=== PATIENT | female | born 1980 | race American Indian/Alaskan Native ===

== ENCOUNTER 2017-02-20 16:04 | Inpatient (IN) | payer OTHER ==
[2017-02-20] MEDS ORDERED: Sodium Chloride 0.9% 1,000 ML ONE (16:38)
[2017-02-20 16:51] LABS: RBC URINE 6 /hpf (0-3); URINE BACTERIA RARE (<OCC); URINE BILIRUBIN NEGATIVE (NEGATIVE); URINE BLOOD 1+ (NEGATIVE); URINE COLOR Yellow (YELLOW); URINE GLUCOSE (UA) NORMAL (Normal); URINE KETONE NEGATIVE (NEGATIVE); URINE LEUKOCYTE ESTERASE NEG Leu/uL (Negative); URINE PROTEIN NEGATIVE (NEGATIVE); URINE UROBILINOGEN NORMAL mg/dL (0.2-1.0); WBC URINE 1 /hpf (0-5)
[2017-02-20] MEDS: Sodium Chloride 0.9% 1,000 ML IV SCH (16:52)
--- NOTE | 2017-02-20 17:06 | C.PDOC ---
History Of Present Illness 36 year old female was referred to the ED by Dr. Martines to be admitted for cellulitis and abscess to left thigh for almost one month. Patient states abscess was draining a few days ago but is no longer draining. She is scheduled for the OR tomorrow and denies fever or any new physical complaints. Time Seen by Provider: 02/20/17 16:16 Chief Complaint (Nursing): Abnormal Skin Integrity History Per: Patient History/Exam Limitations: no limitations Onset/Duration Of Symptoms: Persistent (1 month ) Current Symptoms Are (Timing): Still Present Location Of Injury: Left: Thigh Quality Of Symptoms: Draining (stopped draining a few days ago as per patient ) Recent travel outside of the [place]: No Additional History Per: Prior Records (Dr. Martines ) Past Medical History Reviewed: Historical Data, Nursing Documentation, Vital Signs Vital Signs: Last Vital Signs Temp 98.5 F 02/20/17 16:11 Pulse 69 02/20/17 17:59 Resp 18 02/20/17 17:59 BP 112/62 02/20/17 17:59 Pulse Ox 100 02/20/17 18:18 Family History: States: Unknown Family Hx - Social History Hx Alcohol Use: No Hx Substance Use: No Review Of Systems Constitutional: Negative for: Fever, Chills Cardiovascular: Negative for: Chest Pain, Palpitations Gastrointestinal: Negative for: Nausea, Vomiting, Abdominal Pain, Diarrhea Skin: Positive for: Other (Patient has Cellulitis and abscess to left thigh ) Physical Exam - Physical Exam Appears: Non-toxic, No Acute Distress Skin: Warm, Dry, Other (indurated and tender, mildly erythematous mass 1 cm x 1 cm to left inner thigh) Head: Atraumatic, Normacephalic Eye(s): bilateral: Normal Inspection, PERRL, EOMI Oral Mucosa: Moist Neck: Normal ROM, Supple Chest: Symmetrical, No Deformity Cardiovascular: Rhythm Regular, No Murmur Respiratory: Normal Breath Sounds, No Rales, No Rhonchi, No Wheezing Gastrointestinal/Abdominal: Soft, No Tenderness, No Distention, No Guarding, No Rebound Extremity: Normal ROM, No Tenderness Neurological/Psych: Oriented x3, Normal Speech, Normal Cognition, Normal Motor, Normal Sensation ED Course And Treatment - Laboratory Results Result Diagrams: 02/20/17 16:56 02/20/17 16:56 O2 Sat by Pulse Oximetry: 100 (room air ) Progress Note: EKG and urine culture were ordered. Patient was given Tylenol and IV fluids. Medical Decision Making Medical Decision Making: Patient with cellulitis and abscess of left leg, scheduled for I&D with Dr Martines tomorrow. Patient in no acute distress. Pre-op labs ordered Disposition - Disposition Disposition: HOSPITALIZED Disposition Time: 17:22 Condition: STABLE - POA Present On Arrival: None - Clinical Impression Clinical Impression: Cellulitis and abscess of leg - PA / [employer] OPERATOR / Resident Statement MD/DO has reviewed & agrees with the documentation as recorded. - Scribe Statement The provider has reviewed the documentation as recorded by the Scribe Johanny Barker All medical record entries made by the Scribe were at my direction and personally dictated by me. I have reviewed the chart and agree that the record accurately reflects my personal performance of the history, physical exam, medical decision making, and the department course for this patient. I have also personally directed, reviewed, and agree with the discharge instructions and disposition. Decision To Admit - Pt Status Changed To: Hospital Disposition Of: Inpatient - Admit Certification Admit to Inpatient:: After my assessment, the patient will require hospitalization for at least two midnights. This is because of the severity of symptoms shown, intensity of services needed, and/or the medical risk in this patient being treated as an outpatient. - InPatient: Physician Admission Certification: I certify that this patient requires 2 or more midnights of care for the following reason:: Patient with cellulitis and abscess of left leg, scheduled for I&D with Dr Martines tomorrow - . Bed Request Type: Regular Admitting Physician: Tariq Martines Patient Diagnosis: Cellulitis and abscess of leg
[2017-02-20 17:11] LABS: BASO # 0.1 K/uL (0.0-0.2); BASO % 1.3 % (0.0-2.0); EOS # 0.1 K/uL (0.0-0.7); EOS % 0.7 % (0.0-4.0); HEMATOCRIT 36.2 % (34.0-47.0); LYMPH # 2.2 K/uL (1.0-4.3); LYMPH % 28.4 % (20.0-40.0); MEAN CELL VOLUME 79.2 fL (81.0-99.0); MEAN CORPUSCULAR HEMOGLOBIN 26.3 pg (27.0-31.0); MEAN CORPUSCULAR HGB CONC 33.1 g/dL (33.0-37.0); MEAN PLATELET VOLUME 9.1 fL (7.2-11.7); MONO # 0.4 K/uL (0.0-0.8); MONO % 5.1 % (0.0-10.0); RED CELL DISTRIBUTION WIDTH 16.6 % (11.5-14.5); WHITE BLOOD COUNT 7.8 K/uL (4.8-10.8)
--- NOTE | 2017-02-20 17:15 | RAD ---
HISTORY: pre-op COMPARISON: No prior. TECHNIQUE: Chest PA and lateral FINDINGS: LUNGS: No active pulmonary disease. PLEURA: No significant pleural effusion identified. No pneumothorax apparent. CARDIOVASCULAR: Normal. OSSEOUS STRUCTURES: Minor multilevel of degenerative spondylosis. Additionally, minor chronic anterior wedge deformities involving a few mid to lower thoracic segments noted. VISUALIZED UPPER ABDOMEN: Normal. OTHER FINDINGS: None. IMPRESSION: No no acute cardiopulmonary disease.
[2017-02-20 17:18] LABS: INR 1.1
[2017-02-20 17:21] LABS: CHLORIDE 103 mmol/L (98-107); POTASSIUM 3.9 mmol/L (3.6-5.2); SODIUM 137 mmol/L (132-148)
[2017-02-20 17:23] LABS: BILIRUBIN,TOTAL 0.6 mg/dL (0.2-1.3); CARBON DIOXIDE 23 mmol/L (22-30); GFR AFRICAN-AMERICAN > 60
[2017-02-20 17:24] LABS: ALB/GLOB RATIO 1.3 (1.0-2.1); ALKALINE PHOSPHATASE 68 U/L (38-126); ALT/SGPT 60 U/L (9-52); AST/SGOT 40 U/L (14-36); BLOOD UREA NITROGEN 15 mg/dL (7-17); CALCIUM 9.1 mg/dl (8.6-10.4); GLUCOSE,RANDOM 79 mg/dL (65-105); TOTAL PROTEIN 7.7 g/dL (6.3-8.3)
[2017-02-21] MEDS ORDERED: Midazolam 2 MG/2 ML VIAL ONE (15:01)
[2017-02-21] MEDS ORDERED: Propofol 10 mg/ml Inj (20 ML) ONE (15:02)
[2017-02-21] MEDS ORDERED: Lactated Ringer's 1,000 ML IV ONE (15:06)
[2017-02-21] MEDS ORDERED: ceFAZolin IV 1 gm in Dextrose 1 GM/50 ML BAG IVPB ONE (15:13)
[2017-02-21] MEDS ORDERED: Bupivacaine HCl 0.25% PF (10 ml) Inj ONE ×3 (15:13→15:38)
[2017-02-21] MEDS ORDERED: Lidocaine 2% Inj (20ml) ONE (15:13)
[2017-02-21] MEDS ORDERED: ePHEDrine 50 mg/ml Inj ONE (15:31)
[2017-02-21] MEDS ORDERED: HYDROmorphone 0.5 mg/0.5 ml ISec IVP PRN (15:42)
[2017-02-21] MEDS: HYDROmorphone 0.5 mg/0.5 ml ISec IVP PRN ×2 (16:00→16:23)
[2017-02-21 17:03] VITALS: RESP 20
--- NOTE | 2017-02-21 18:56 | OP ---
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 PROCEDURES PERFORMED: 1. Wide and deep excision (radical resection) of 8 x 10 cm infected neoplasm of the left thigh (06228). 2. Adjacent tissue transfer closure of 50 sq cm (27910). SURGEON: Dr. Tariq Martines. TYPE OF ANESTHESIA: General endotracheal. ESTIMATED BLOOD LOSS: 40 mL POSTOPERATIVE CONDITION: Stable. INDICATIONS FOR SURGERY: A 36-year-old female presented with a large infected mass and neoplasm of her left thigh. She was treated with antibiotics and now will undergo a radical resection. DESCRIPTION OF PROCEDURE: The patient was taken to the operating room. General anesthesia was administered and the left thigh and leg were prepped and draped. A large generous elliptical incision was made surrounding the mass, which was carried down to the fascial layer. The mass was completely excised using the Bovie. Larger bleeders were ligated. Once the excision was performed, there was a very large tissue defect measuring approximately 50 to 60 sq cm, and an adjacent tissue transfer closure was performed by widely mobilizing and undermining using the Bovie and then using multiple layers of heavy Monocryl, subcuticular Monocryl, and skin clips. The patient tolerated the procedure well, returned to the recovery room in stable condition. Tariq Martines MD
[2017-02-21] MEDS: Oxycodone/Acetaminophen 5/325 mg Tab PO PRN (22:05)
[2017-02-21] MEDS: Sodium Chloride 0.9% 1,000 ML IV SCH (23:14)
[2017-02-21] MEDS ORDERED: ceFAZolin 1 gm FROZEN Premix 1 GM/50 ML ML IVPB SCH (23:30)
[2017-02-22] MEDS: Sodium Chloride 0.9% 1,000 ML IV SCH (06:00)
[2017-02-22] MEDS: Oxycodone/Acetaminophen 5/325 mg Tab PO PRN (06:45)
[2017-02-22 08:09] VITALS: BP 111/78; TEMP 97.8
[2017-02-22 13:04] VITALS: PULSE 66; O2SAT 98
--- NOTE | 2017-02-22 18:10 | CARD ---
APPROVED REPORT EKG Measurement Heart [id number] <Conclusion> Normal sinus rhythm Normal ECG
== END 2017-02-22 14:04 | disposition home or self-care (01) | DRG 264 ==
LOC: C.ER 16:04 → C.9E 17:23 → C.3T 18:33
PROVIDERS: ADMIT Surgery; ATTEND Surgery
PROC: 0JBM0ZZ Excision of Left Upper Leg Subcutaneous Tissue and Fascia, Open Approach (ICD-10-PCS; 2017-02-21)
PROC: 0JXM0ZZ Transfer Left Upper Leg Subcutaneous Tissue and Fascia, Open Approach (ICD-10-PCS; principal; 2017-02-21 12:15)
DX: L03.116 Cellulitis of left lower limb (principal)

== ENCOUNTER 2017-09-06 10:55 | Emergency (ER) | payer OTHER ==
[2017-09-06 11:07] VITALS: BMI 41.5
[2017-09-06 11:11] VITALS: RESP 18
[2017-09-06] MEDS ORDERED: Vancomycin 1 gm/NS 200 ml 1 GM/200 ML BAG IVPB STA (12:16)
[2017-09-06] MEDS ORDERED: Piperacill/Tazo 3.375gm in Dex 3.375 GM/50 ML BAG IVPB STA (12:16)
[2017-09-06 12:54] LABS: BASO # 0.1 K/uL (0.0-0.2); BASO % 1.3 % (0.0-2.0); EOS # 0.1 K/uL (0.0-0.7); EOS % 1.4 % (0.0-4.0); HEMOGLOBIN 12.3 g/dL (11.0-16.0); LYMPH # 1.9 K/uL (1.0-4.3); LYMPH % 25.7 % (20.0-40.0); MEAN CELL VOLUME 84.7 fL (81.0-99.0); MEAN CORPUSCULAR HEMOGLOBIN 28.1 pg (27.0-31.0); MEAN CORPUSCULAR HGB CONC 33.2 g/dL (33.0-37.0); MEAN PLATELET VOLUME 10.2 fL (7.2-11.7); MONO # 0.6 K/uL (0.0-0.8); MONO % 8.5 % (0.0-10.0); NEUT # 4.6 K/uL (1.8-7.0); NEUT % 63.1 % (50.0-75.0); RBC 4.37 Mil/uL (3.80-5.20); RED CELL DISTRIBUTION WIDTH 14.3 % (11.5-14.5); WHITE BLOOD COUNT 7.2 K/uL (4.8-10.8)
[2017-09-06 12:58] LABS: VENOUS BLOOD GAS BASE EXCESS 3.2 mmol/L (0.0-2.0); VENOUS BLOOD GAS PCO2 53 mmHg (40-60); VENOUS BLOOD GAS PO2 25 mm/Hg (30-55); VENOUS BLOOD PH 7.36 (7.32-7.43)
[2017-09-06 13:05] LABS: ALB/GLOB RATIO 1.1 (1.0-2.1); ALBUMIN 4.2 g/dL (3.5-5.0); CALCIUM 8.9 mg/dl (8.6-10.4); GFR AFRICAN-AMERICAN > 60; GFR NON-AFRICAN AMERICAN > 60
[2017-09-06 13:07] LABS: ALT/SGPT 41 U/L (9-52); AST/SGOT 37 U/L (14-36); BLOOD UREA NITROGEN 11 mg/dL (7-17)
[2017-09-06 14:50] VITALS: BP 124/78; PULSE 82; TEMP 98.7; O2SAT 99
--- NOTE | 2017-09-06 15:55 | C.PDOC ---
History Of Present Illness 37 year old female, with history of obesity, presents to the ED with c/o pain, swelling and drainage to her left anterior de [place] ve[place] region. Patient reports experiencing similar symptoms one year ago when she had an abscess to her left inner thigh that was drained multiple times and was ultimately operated on by Dr. Martines. Patient does not have any documented fever but states she has been feeling febrile. Patient does not have a fever in the ED. She describes her pain as 8/10 in severity that worsens with walking and palpation of the area. She denies headache, nausea, vomiting. Time Seen by Provider: 09/06/17 11:38 Chief Complaint (Nursing): Lower Extremity Problem/Injury History Per: Patient History/Exam Limitations: no limitations Onset/Duration Of Symptoms: Intermittent Episodes Current Symptoms Are (Timing): Still Present Pain Scale Rating Of: 8 Additional History Per: Patient Past Medical History Reviewed: Historical Data, Nursing Documentation, Vital Signs Vital Signs: Last Vital Signs Temp 98.7 F 09/06/17 14:49 Pulse 82 09/06/17 14:49 Resp 18 09/06/17 14:49 BP 124/78 09/06/17 14:49 Pulse Ox 99 09/06/17 16:18 - Medical History PMH: No Chronic Diseases Surgical History: No Surg Hx - [facility] Procedures EXCISION OF L UP LEG SUBCU/FASCIA, OPEN APPROACH (02/20/17) TRANSFER L UP LEG SUBCU/FASCIA, OPEN APPROACH (02/20/17) Family History: States: Unknown Family Hx - Social History Hx Alcohol Use: No Hx Substance Use: No - Immunization History Hx Tetanus Toxoid Vaccination: No Hx Influenza Vaccination: No Hx Pneumococcal Vaccination: No Review Of Systems Gastrointestinal: Negative for: Nausea, Vomiting Skin: Positive for: Other (pain, swelling and drainage to anterior aspect of left [place] ) Neurological: Negative for: Headache Physical Exam - Physical Exam Appears: Non-toxic, No Acute Distress Skin: Other (anterior aspect of left [place]: 4x6cm area of induration, erythema and warmth with desquamation to the central portion. some foul-smelling drainage noted ) Extremity: Normal ROM, Tenderness (to anterior aspect of left [place] ), Capillary Refill (less than 2 seconds ) Neurological/Psych: Oriented x3, Normal Speech, Normal Cognition, Normal Sensation ED Course And Treatment - Laboratory Results Result Diagrams: 09/06/17 12:50 09/06/17 12:50 O2 Sat by Pulse Oximetry: 99 (on RA ) Pulse Ox Interpretation: Normal - Incision & Drainage Of Abscess Procedure: Incised W/Scalpel Blade#: (11), Drained Pus, Irrigated Cavity W/ Saline, Probed To Break Up Loculations, Packed W/Gauze, Cultures Obtained And Sent To Lab Medical Decision Making Medical Decision Making: Progress: Bloodwork ordered and reviewed. Zofran IVP and Vancomycin IVP administered. Incision and Drainage Procedure Note: Verbal consent obtained. 4x6cm fluctuant area to anterior aspect of left [place]. Area cleaned with 10% betadine solution. One simple incision made with sterile # 11 blade scalpel. Copious amounts of yellow purulent discharge expressed. Sterile packing placed in incision. Wound dressed with dry, sterile dressing. Patient tolerated well. On reassessment, patient is resting comfortably, showing no signs of distress and is stable for discharge. Patient is advised to return to ER in 2 days for wound check and further evaluation. Disposition Counseled Patient/Family Regarding: Studies Performed, Diagnosis, Need For Followup, Rx Given - Disposition Referrals: Billy Treviño MD [Staff Provider] - Disposition: HOME/ ROUTINE Disposition Time: 15:52 Condition: GUARDED Additional Instructions: Return to the Emergency Department in 2 days (Sunday) for wound check. Return immediately if you develop fevers, if the leg becomes swollen or you have any other concerns. Prescriptions: Ibuprofen [Motrin] 600 mg PO TID #15 tab Sulfamethoxazole/Trimethoprim [Bactrim DS 800 mg-160 mg] 1 tab PO BID #14 tab Instructions: Abscess Incision and Drainage Forms: General Discharge Instructions, [facility] (Thai), Work Excuse - POA Present On Arrival: None - Clinical Impression Clinical Impression: Abscess - Scribe Statement The provider has reviewed the documentation as recorded by the Scribe (Sondra Yu) Provider Attestation: All medical record entries made by the Scribe were at my direction and personally dictated by me. I have reviewed the chart and agree that the record accurately reflects my personal performance of the history, physical exam, medical decision making, and the department course for this patient. I have also personally directed, reviewed, and agree with the discharge instructions and disposition.
== END 2017-09-06 16:05 | disposition home or self-care (01) ==
LOC: C.ER 10:55
DX: L02.416 Cutaneous abscess of left lower limb (principal)
CPT/HCPCS: 10060; 80053; 82803; 83735; 85025; 87040; 96365; 96367; 99284; J2543; J3370

== ENCOUNTER 2017-09-08 08:55 | Emergency (ER) | payer OTHER ==
[2017-09-08 08:56] VITALS: BMI 41.5
[2017-09-08 09:17] VITALS: BP 139/77; PULSE 80; RESP 18; TEMP 97.9; O2SAT 100
--- NOTE | 2017-09-08 09:43 | C.PDOC ---
History Of Present Illness 37yo female, presents to ED for a wound check after having an incision and drainage performed on an abscess on her anterior left de [place] vega. Patient denies any fever, chills, purulent discharge from the area. No other medical complaints. Time Seen by Provider: 09/08/17 09:39 Chief Complaint (Nursing): Wound Check History Per: Patient History/Exam Limitations: no limitations Onset/Duration Of Symptoms: Days Ago (2) Current Symptoms Are (Timing): Gone Location Of Injury: Anterior: Leg (de la vega) Quality Of Symptoms: denies: Painful, Swollen, Draining Past Medical History Reviewed: Historical Data, Nursing Documentation, Vital Signs Vital Signs: Last Vital Signs Temp 97.9 F 09/08/17 09:13 Pulse 80 09/08/17 09:13 Resp 18 09/08/17 09:13 BP 139/77 09/08/17 09:13 Pulse Ox 100 09/08/17 10:28 - Medical History PMH: No Chronic Diseases Surgical History: No Surg Hx - [facility] Procedures EXCISION OF L UP LEG SUBCU/FASCIA, OPEN APPROACH (02/20/17) TRANSFER L UP LEG SUBCU/FASCIA, OPEN APPROACH (02/20/17) Family History: States: Unknown Family Hx - Social History Hx Alcohol Use: No Hx Substance Use: No - Immunization History Hx Tetanus Toxoid Vaccination: No Hx Influenza Vaccination: No Hx Pneumococcal Vaccination: No Review Of Systems Except As Marked, All Systems Reviewed And Found Negative. Constitutional: Negative for: Fever, Chills Skin: Negative for: Other (discharge from I&D site) Physical Exam - Physical Exam Appears: Non-toxic, No Acute Distress Skin: Warm, Dry, Other (well healing 2x2cm incision and drainage site on left anterior de [place]. Non-fould sero-sanguinous drainage noted. No tenderness, erythema or signs of infection noted.) Head: Atraumatic, Normacephalic Eye(s): bilateral: Normal Inspection Neck: Normal ROM, Supple Chest: Symmetrical Cardiovascular: Rhythm Regular Respiratory: Normal Breath Sounds ED Course And Treatment O2 Sat by Pulse Oximetry: 100 (RA) Pulse Ox Interpretation: Normal Medical Decision Making Medical Decision Making: L lower leg wound healing nicely clear sero-sanguinous d/c, no foul smell good compliance with bactrim no repack needed. Disposition Doctor Will See Patient In The: Office Counseled Patient/Family Regarding: Studies Performed, Diagnosis - Disposition Referrals: Billy Treviño MD [Staff Provider] - Disposition: HOME/ ROUTINE Disposition Time: 09:43 Condition: GOOD Additional Instructions: continue daily wound care wash with soap and water only. Bacitracin ointment and a bandage covering. Continue your bactrim antibiotic until completed. follow-up with Dr. Treviño as needed. Instructions: Wound Care Forms: [employer] ([place]) - Clinical Impression Clinical Impression: Change of dressing - Scribe Statement The provider has reviewed the documentation as recorded by the Scribe (Lindy Browning) Provider Attestation: All medical record entries made by the Scribe were at my direction and personally dictated by me. I have reviewed the chart and agree that the record accurately reflects my personal performance of the history, physical exam, medical decision making, and the department course for this patient. I have also personally directed, reviewed, and agree with the discharge instructions and disposition.
[2017-09-08] MEDS ORDERED: Bacitracin 500 Units/gm Oint Foilpak UD ONE (09:45)
== END 2017-09-08 10:01 | disposition home or self-care (01) ==
LOC: C.ER 08:55
DX: Z48.00 Encounter for change or removal of nonsurgical wound dressing (principal)